=== PATIENT | female | born 1965 | race Caucasian/White ===

== ENCOUNTER 2020-03-31 01:48 | Observation (INO) | payer OTHER ==
[2020-03-31] MEDS ORDERED: ONDANSETRON 4 MG/2 ML VIAL ONE ×2 (02:48→09:01)
[2020-03-31] MEDS ORDERED: MORPHINE 2 MG/ML SYR ONE ×2 (02:48→04:01)
[2020-03-31] MEDS ORDERED: FAMOTIDINE 20 MG/2 ML VIAL IV ONE (02:48)
[2020-03-31] MEDS ORDERED: NA CHLORIDE 0.9% 1,000 ML ONE (02:48)
[2020-03-31 02:53] LABS: Absolute Lymphocytes (CBC) 1.7 K/uL (0.7-4.9); Basophils % 0.6 % (0-1.3); Hematocrit 42.2 % (36.0-45.0); Lymphocytes % 22.6 % (15.3-44.8); MPV 7.9 fL (7.6-11.3); RBC Red Blood Cell Count 4.44 M/uL (3.86-4.86)
[2020-03-31 03:02] LABS: Albumin 3.7 g/dL (3.4-5.0); Bilirubin Direct 0.1 mg/dL (0-0.2); Bilirubin Total 0.4 mg/dL (0.2-1.0); Potassium 3.6 mmol/L (3.5-5.1); Protein, Total 7.5 g/dL (6.4-8.2)
--- NOTE | 2020-03-31 03:56 | ER ---
Nurse's Notes [facility] Name: Marla Perdomo Age: 54 yrs Sex: Female : 1965 Arrival Date: 03/31/2020 Time: 01:51 Bed 2 Private MD: Diagnosis: Abdominal tenderness;Acute appendicitis Presentation: 03/31 02:02 Chief complaint: Patient states: Epigastric pain that began 2-3 days, non radiating, sg described as burning at times, reports nausea, denies fever/chills/diarrhea/vomiting at this time for triage. Coronavirus screen: Patient denies a cough. Patient denies shortness of breath or difficulty breathing. Patient denies measured and/or subjective temperature greater than 100.4F prior to today's visit. Patient denies travel on a cruise ship or to a country the [facility] currently lists as an affected area. Patient denies contact with known and/or suspected case of COVID-19. Proceed with normal triage. Ebola Screen: Patient negative for fever greater than or equal to 101.5 degrees Fahrenheit, and additional compatible Ebola Virus Disease symptoms Patient denies exposure to infectious person. Patient denies travel to an Ebola-affected area in the 21 days before illness onset. No symptoms or risks identified at this time. Initial Sepsis Screen: Does the patient meet any 2 criteria? No. Patient's initial sepsis screen is negative. Does the patient have a suspected source of infection? Yes: Acute abdominal pain. Risk Assessment: Do you want to hurt yourself or someone else? Patient reports no desire to harm self or others. Onset of symptoms was March 31, 2020. Care prior to arrival: None. Transition of care: patient was not received from another setting of care. 02:02 Method Of Arrival: Ambulatory sg 02:02 Acuity: KAITLIN 3 sg Historical: - Allergies: 02:06 PENICILLINS; sg - Home Meds: 02:06 levothyroxine oral [Active]; amlodipine oral [Active]; Omeprazole Oral [Active]; sg Hydrochlorothiazide Oral [Active]; - PMHx: 02:06 Hypothyroidism; Hypertension; sg - PSHx: 02:06 Breast Reduction; sg - Immunization history:: Adult Immunizations up to date. - Social history:: Smoking status: Patient denies any tobacco usage or history of. - Family history:: not pertinent. Screenin:49 Abuse screen: Denies threats or abuse. Denies injuries from another. Nutritional rr5 screening: No deficits noted. Tuberculosis screening: No symptoms or risk factors identified. Fall Risk IV access (20 points). Total Torrez Fall Scale indicates No Risk (0-24 pts). Assessment: 02:45 General: Appears in no apparent distress. uncomfortable, Behavior is calm, cooperative, rr5 appropriate for age. Pain: Complains of pain in epigastric area Pain radiates to right lower quadrant Pain currently is 7 out of 10 on a pain scale. Quality of pain is described as burning, Pain began gradually, 2-3 days ago. Is intermittent. Neuro: Level of Consciousness is awake, alert, obeys commands, Oriented to person, place, time, situation. Cardiovascular: Capillary refill < 3 seconds Patient's skin is warm and dry. Respiratory: Airway is patent Respiratory effort is even, unlabored, Respiratory pattern is regular, symmetrical. GI: Abdomen is round non-distended, Bowel sounds present X 4 quads. Abdomen is tender to palpation. : No signs and/or symptoms were reported regarding the genitourinary system. EENT: No signs and/or symptoms were reported regarding the EENT system. Derm: Skin is intact, is healthy with good turgor, Skin temperature is warm. Musculoskeletal: Circulation, motion, and sensation intact. Capillary refill < 3 seconds. 03:49 Reassessment: Patient appears in no apparent distress at this time. No changes from previously documented assessment. Patient and/or family updated on plan of care and expected duration. Pain level reassessed. Patient is alert, oriented x 3, equal unlabored respirations, skin warm/dry/pink. 05:15 Reassessment: Patient appears in no apparent distress at this time. No changes from previously documented assessment. Patient and/or family updated on plan of care and expected duration. Pain level reassessed. Patient is alert, oriented x 3, equal unlabored respirations, skin warm/dry/pink. Vital Signs: 02:02 Pulse 87 MON; Resp 16 S; Temp 97.7; Pulse Ox 100% on R/A; Weight 76.2 kg (R); Height 5 sg ft. 7 in. (170.18 cm) (R); Pain 7/10; 03:49 BP 123 / 57; Pulse 59; Resp 18; Pulse Ox 98% on R/A; 05:14 BP 111 / 56; Pulse 65; Resp 18; Pulse Ox 99% on R/A; 02:02 Body Mass Index 26.31 (76.20 kg, 170.18 cm) ED Course: 01:51 Patient arrived in ED. cl3 02:00 Moises Simental MD is Attending Physician. [place] 02:04 Triage completed. 02:06 Arm band placed on. sg 02:24 Inserted saline lock: 20 gauge in right antecubital area, using aseptic technique. mw2 Blood collected. 02:30 Keanu Lee is Primary Nurse. 02:49 Patient has correct armband on for positive identification. Placed in gown. Bed in low rr5 position. Call light in reach. Pulse ox on. NIBP on. 03:28 CT Abd/Pelvis - IV Contrast Only In Process Unspecified. EDMS 03:46 Chest Single View XRAY In Process Unspecified. EDMS 03:55 Galen Garcia MD is Hospitalizing Provider. [facility] 05:13 No provider procedures requiring assistance completed. Patient admitted, IV remains in wh place. Administered Medications: 02:42 Drug: NS 0.9% 1000 ml Route: IV; Rate: 1 bolus; Site: right antecubital; 03:56 Follow up: Response: No adverse reaction; IV Status: Completed infusion 02:44 Drug: Pepcid 20 mg Route: IVP; Site: right antecubital; 03:56 Follow up: Response: No adverse reaction 02:46 Drug: morphine 2 mg {Note: RASS 0.} Route: IVP; Site: right antecubital; 02:48 Drug: Zofran (Ondansetron) 4 mg Route: IVP; Site: right antecubital; 03:56 Follow up: Response: No adverse reaction; Nausea is decreased 03:56 Drug: morphine 2 mg {Note: RASS 0.} Route: IVP; Site: right antecubital; 03:56 Follow up: Response: No adverse reaction; Pain is decreased; RASS: Alert and Calm (0) 04:15 Drug: Mefoxin 2 grams Route: IVPB; Infused Over: 30 mins; Site: right antecubital; 04:57 Follow up: Response: No adverse reaction; IV Status: Completed infusion 04:57 Drug: Flagyl 500 mg Volume: 100 ml; Route: IVPB; Rate: 200 ml/hr; Infused Over: 30 wh mins; Site: right antecubital; 05:15 Follow up: Response: No adverse reaction; IV Status: Infusion continued upon admission Outcome: 03:55 Decision to Hospitalize by Provider. [facility] 05:14 Admitted to Med/surg accompanied by tech, via wheelchair, room 214, with chart, Report called to Alea De La Fuente RN 05:14 Condition: stable 05:14 Instructed on the need for admit. 05:35 Patient left the ED. Signatures: Dispatcher [employer] EDEzekiel Tellez RN RN Moises Downing MD MD cha Habalo, Winsy Abdirahman Mike mw2 George Tinoco RN RN rr5 Aiden Osorio cl3
--- NOTE | 2020-03-31 03:56 | EDPHYS ---
Physician Documentation [facility] Name: Marla Perdomo Age: 54 yrs Sex: Female : 1965 Arrival Date: 03/31/2020 Time: 01:51 Bed 2 Private MD: Moises Quevedo HPI: 03/31 02:35 This 54 yrs old Female presents to ER via Ambulatory with complaints of chico Abdominal Pain. 02:35 The patient presents with abdominal pain in the upper abdomen, in the lower abdomen. chico Onset: The symptoms/episode began/occurred 2 day(s) ago. The patient presents to the emergency department with nausea, vomiting, abdominal pain, of the right upper quadrant, left upper quadrant, right lower quadrant and left lower quadrant. Onset: The symptoms/episode began/occurred 2 day(s) ago. Possible causes: unknown. The symptoms are aggravated by nothing. The symptoms are alleviated by nothing. Associated signs and symptoms: The patient has no apparent associated signs or symptoms. The symptoms do not radiate. Associated signs and symptoms: none. Modifying factors: The symptoms are alleviated by remaining still, the symptoms are aggravated by movement. Historical: - Allergies: 02:06 PENICILLINS; sg - Home Meds: 02:06 levothyroxine oral [Active]; amlodipine oral [Active]; Omeprazole Oral [Active]; sg Hydrochlorothiazide Oral [Active]; - PMHx: 02:06 Hypothyroidism; Hypertension; sg - PSHx: 02:06 Breast Reduction; sg - Immunization history:: Adult Immunizations up to date. - Social history:: Smoking status: Patient denies any tobacco usage or history of. - Family history:: not pertinent. ROS: 02:35 Constitutional: Negative for fever, chills, and weight loss, Eyes: Negative for injury, chico pain, redness, and discharge, ENT: Negative for injury, pain, and discharge, Neck: Negative for injury, pain, and swelling, Cardiovascular: Negative for chest pain, palpitations, and edema, Respiratory: Negative for shortness of breath, cough, wheezing, and pleuritic chest pain, Back: Negative for injury and pain, : Negative for injury, bleeding, discharge, and swelling, MS/Extremity: Negative for injury and deformity, Skin: Negative for injury, rash, and discoloration, Neuro: Negative for headache, weakness, numbness, tingling, and seizure, Psych: Negative for depression, anxiety, suicide ideation, homicidal ideation, and hallucinations, Allergy/Immunology: Negative for hives, rash, and allergies, Endocrine: Negative for neck swelling, polydipsia, polyuria, polyphagia, and marked weight changes, Hematologic/Lymphatic: Negative for swollen nodes, abnormal bleeding, and unusual bruising. 02:35 Abdomen/GI: Positive for abdominal pain, of the right upper quadrant, left upper quadrant, right lower quadrant and left lower quadrant. Exam: 02:36 Constitutional: This is a well developed, well nourished patient who is awake, alert, chico and in no acute distress. Head/Face: Normocephalic, atraumatic. Eyes: Pupils equal round and reactive to light, extra-ocular motions intact. Lids and lashes normal. Conjunctiva and sclera are non-icteric and not injected. Cornea within normal limits. Periorbital areas with no swelling, redness, or edema. ENT: Nares patent. No nasal discharge, no septal abnormalities noted. Tympanic membranes are normal and external auditory canals are clear. Oropharynx with no redness, swelling, or masses, exudates, or evidence of obstruction, uvula midline. Mucous membranes moist. Neck: Trachea midline, no thyromegaly or masses palpated, and no cervical lymphadenopathy. Supple, full range of motion without nuchal rigidity, or vertebral point tenderness. No Meningismus. Chest/axilla: Normal chest wall appearance and motion. Nontender with no deformity. No lesions are appreciated. Cardiovascular: Regular rate and rhythm with a normal S1 and S2. No gallops, murmurs, or rubs. Normal PMI, no JVD. No pulse deficits. Respiratory: Lungs have equal breath sounds bilaterally, clear to auscultation and percussion. No rales, rhonchi or wheezes noted. No increased work of breathing, no retractions or nasal flaring. Back: No spinal tenderness. No costovertebral tenderness. Full range of motion. Female : Normal external genitalia. Skin: Warm, dry with normal turgor. Normal color with no rashes, no lesions, and no evidence of cellulitis. MS/ Extremity: Pulses equal, no cyanosis. Neurovascular intact. Full, normal range of motion. Neuro: Awake and alert, GCS 15, oriented to person, place, time, and situation. Cranial nerves II-XII grossly intact. Motor strength 5/5 in all extremities. Sensory grossly intact. Cerebellar exam normal. Normal gait. Psych: Awake, alert, with orientation to person, place and time. Behavior, mood, and affect are within normal limits. 02:36 Abdomen/GI: Inspection: abdomen appears normal, Bowel sounds: active, Palpation: moderate abdominal tenderness, in the right upper quadrant, left upper quadrant, right lower quadrant and left lower quadrant, Liver: no appreciated palpable abnormalities, Hernia: not appreciated. Vital Signs: 02:02 Pulse 87 MON; Resp 16 S; Temp 97.7; Pulse Ox 100% on R/A; Weight 76.2 kg (R); Height 5 sg ft. 7 in. (170.18 cm) (R); Pain 7/10; 03:49 BP 123 / 57; Pulse 59; Resp 18; Pulse Ox 98% on R/A; 05:14 BP 111 / 56; Pulse 65; Resp 18; Pulse Ox 99% on R/A; 02:02 Body Mass Index 26.31 (76.20 kg, 170.18 cm) MDM: 02:00 Patient medically screened. [facility] 02:37 Data reviewed: vital signs, nurses notes, lab test result(s), radiologic studies, CT [facility] scan, plain films. 03/31 02:18 Order name: Basic Metabolic Panel; Complete Time: 03:52 mw2 03/31 02:18 Order name: CBC with Diff; Complete Time: 02:57 [facility] 03/31 02:18 Order name: Hepatic Function; Complete Time: 03:52 mw2 03/31 02:18 Order name: Lipase; Complete Time: 03:52 mw2 03/31 02:34 Order name: Chest Single View XRAY [facility] 03/31 02:37 Order name: CT Abd/Pelvis - IV Contrast Only [facility] 03/31 02:18 Order name: IV Saline Lock; Complete Time: 02:31 mw 03/31 02:18 Order name: Labs collected and sent; Complete Time: 02:31 mw2 Administered Medications: 02:42 Drug: NS 0.9% 1000 ml Route: IV; Rate: 1 bolus; Site: right antecubital; 03:56 Follow up: Response: No adverse reaction; IV Status: Completed infusion 02:44 Drug: Pepcid 20 mg Route: IVP; Site: right antecubital; 03:56 Follow up: Response: No adverse reaction 02:46 Drug: morphine 2 mg {Note: RASS 0.} Route: IVP; Site: right antecubital; 02:48 Drug: Zofran (Ondansetron) 4 mg Route: IVP; Site: right antecubital; 03:56 Follow up: Response: No adverse reaction; Nausea is decreased 03:56 Drug: morphine 2 mg {Note: RASS 0.} Route: IVP; Site: right antecubital; 03:56 Follow up: Response: No adverse reaction; Pain is decreased; RASS: Alert and Calm (0) 04:15 Drug: Mefoxin 2 grams Route: IVPB; Infused Over: 30 mins; Site: right antecubital; 04:57 Follow up: Response: No adverse reaction; IV Status: Completed infusion 04:57 Drug: Flagyl 500 mg Volume: 100 ml; Route: IVPB; Rate: 200 ml/hr; Infused Over: 30 wh mins; Site: right antecubital; 05:15 Follow up: Response: No adverse reaction; IV Status: Infusion continued upon admission Disposition: 03/31/20 03:55 Hospitalization ordered by Galen Garcia for Observation. Preliminary diagnosis are Abdominal tenderness, Acute appendicitis. - Bed requested for Telemetry/MedSurg (observation). - Status is Observation. - Condition is Fair. - Problem is new. - Symptoms have improved. Signatures: Dispatcher [employer] EDMS Caroline Mello RN RN mw Gay, Steven, RN RN sg Anderson, Corey, MD MD cha Habalo, [facility]y [facility] mw2 Corrections: (The following items were deleted from the chart) 04:15 03:55 Hospitalization Ordered by Galen Garcia MD for Observation. Preliminary diagnosis mw is Abdominal tenderness; Acute appendicitis. Bed requested for Telemetry/MedSurg (observation). Status is Observation. Condition is Fair. Problem is new. Symptoms have improved. [facility] 05:35 04:15 03/31/2020 03:55 Hospitalization Ordered by Galen Garcia MD for Observation. Preliminary diagnosis is Abdominal tenderness; Acute appendicitis. Bed requested for Telemetry/MedSurg (observation). Status is Observation. Condition is Fair. Problem is new. Symptoms have improved. mw
[2020-03-31] MEDS ORDERED: CEFOXITIN SODIUM 1 GM/VIAL ONE (04:13)
[2020-03-31] MEDS ORDERED: METRONIDAZOLE 500mg IVPB 500 MG/100 ML BAG IV ONE (04:13)
[2020-03-31] MEDS ORDERED: NA CHLORIDE 0.9% 100 ML IV ONE (04:13)
[2020-03-31] MEDS ORDERED: D5 0.45 NS 1,000 ML IV SCH (05:31)
[2020-03-31] MEDS ORDERED: MORPHINE 4 MG/ML SYR IV PRN (05:31)
[2020-03-31] MEDS ORDERED: ONDANSETRON 4 MG (ODT) TAB PO PRN (05:31)
[2020-03-31] MEDS ORDERED: ACETAMINOPHEN 325 MG TABLET PO PRN (05:33)
[2020-03-31 05:40] VITALS: BMI 26.9
[2020-03-31] MEDS ORDERED: CEFOXITIN SODIUM 1 GM/VIAL IVPB SCH (06:00)
[2020-03-31] MEDS: METRONIDAZOLE 500mg IVPB 500 MG/100 ML BAG IV SCH ×2 (06:00→12:00)
[2020-03-31] MEDS ORDERED: CEFOXITIN/SWI 1gm 1 GM/10 ML SYR ONE ×2 (06:24→08:59)
[2020-03-31] MEDS ORDERED: LIDOCAINE 1% MPF 5 ML VIAL ONE (08:15)
[2020-03-31] MEDS ORDERED: FENTANYL CITR 100 MCG/2 ML ONE (08:15)
[2020-03-31] MEDS ORDERED: propofoL 200 MG/20 ML VIAL IV ONE (08:15)
[2020-03-31] MEDS ORDERED: MIDAZOLAM HCL 2 MG/2 ML INJ ONE (08:15)
[2020-03-31] MEDS ORDERED: ROCURONIUM 50 MG/5 ML VIAL IV ONE (08:15)
[2020-03-31] MEDS ORDERED: Ringers Lactate 1,000 ML IV ONE (08:30)
[2020-03-31] MEDS ORDERED: SUCCINYLCHOLINE 20 MG/ML (10 ML) IV ONE (08:41)
--- NOTE | 2020-03-31 08:52 | RAD REPORT ---
EXAM DESCRIPTION: RAD - Chest Single View - 03/31/2020 3:46 am CLINICAL HISTORY: ABDOMINAL DISTENTION Chest pain. COMPARISON: No comparisons FINDINGS: Portable technique limits examination quality. The lungs are grossly clear. The heart is normal in size. No displaced fractures. IMPRESSION: No acute intrathoracic process suspected.
[2020-03-31] MEDS ORDERED: dexAMETHasone 10 MG/ML VIAL ONE (09:01)
[2020-03-31] MEDS ORDERED: KETOROLAC 30 MG/ML INJ ONE (09:01)
--- NOTE | 2020-03-31 09:04 | PREOPHP ---
Date of Admission: 03/31/2020 Chief Complaint: Abdominal pain. History Of Present Illness: The patient is a 54-year-old female, who was admitted with approximately 3-day history of diffuse abdominal pain, localizing to the right lower quadrant, associated with ano rexia and nausea, but no vomiting. No diarrhea or constipation. No blood in her stool. No dysuria or hematuria. No sore throat, runny nose, cough, headaches, or dizziness. No chest pain. No fever or chills. Review of Systems: Otherwise unremarkable. Past Medical History: Negative. Past Surgical History: Breast reduction and tummy tuck. Allergies: PENICILLIN. Social History: The patient denies smoking. Drinks occasionally. Family History: Significant for stroke, heart disease. Physical Examination: Vital Signs: Stable. She is currently afebrile. General: She is awake, alert, oriented x3. Head and Neck: Cranial nerves 2 through 12 grossly within normal limits. No neck masses. No JVD. Throat clear. Neck supple. Chest: Clear. Heart: S1, S2. Abdomen: Soft, nondistended. Positive bowel sounds. Positive right lower quadrant tenderness with rebound. No rigidity or guarding. Extremities: Adequately perfused. Nontender. Neuro: Nonfocal. Laboratory Data: White count is normal. CT of the abdomen and pelvis is consistent with acute appen dicitis. Assessment: Acute appendicitis. Plan: Admit, n.p.o., IV fluid, IV antibiotic. To the OR for lap appy, possible open. The patient u nderstands the risks, benefits, and alternatives and agrees to procedure. /MODL Voice ID: [id number]
[2020-03-31] MEDS ORDERED: GLYCOPYRROLATE 0.2 MG/ML SYR ONE (09:06)
[2020-03-31] MEDS ORDERED: NEOSTIGMINE 1 MG/ML -5 ML ONE (09:06)
--- NOTE | 2020-03-31 09:07 | RAD REPORT ---
EXAM DESCRIPTION: Abdomen Pelvis W Contrast ADDENDUM #1 Urgent finding reported to Dr. Simental at 03/31/2020 3:49 AM CDT Electronically signed by: Dilan Snider 03/31/2020 3:58 AM CDT End of Addendum EXAM DESCRIPTION: CT ABDOMEN AND PELVIS WITH CONTRAST CLINICAL HISTORY: Abd pain;Abdominal distention COMPARISON: None Available. TECHNIQUE: CT of the abdomen and pelvis performed following IV administration of iodinated contras t. FINDINGS: Lung Bases: The visualized lung bases are clear. Bones: No destructive bone lesions identified. Abdomen: Liver: The liver has normal size and decreased density. No intrahepatic biliary dilatation. Gallbladder: No calcified gallstones. Spleen, Pancreas, and Adrenal Glands: The spleen, pancreas, and adrenal glands are unremarkable. Kidneys: No hydronephrosis or obstructing calculus. Left renal cyst. Vasculature: Aortoiliac atherosclerosis. IVC is unremarkable. The portal vein is patent. The proxim al visceral and renal arteries are patent. Stomach: The stomach and duodenum have normal course. Other: No free intraperitoneal air. No free fluid or lymphadenopathy. Pelvis: Bladder: Urinary bladder is unremarkable. Bowel: No dilated loops of large or small bowel. Scattered diverticula colon. No pericolic inflamma tory change. Appendix: Dilation of the appendix measuring 1.3 cm. Wall thickening of the appendix. No periappend iceal inflammatory change. Pelvis: Likely intramural uterine fibroid. IMPRESSION: 1. Findings compatible with acute appendicitis. 2. Diverticulosis without evidence of acute diverticulitis. 3. Fibroid uterus. 4. Hepatic steatosis. This exam was performed according to our departmental dose-optimization program, which includes autom ated exposure control, adjustment of the mA and/or kV according to patient size and/or use of iterati ve reconstruction technique. Electronically signed by: Dilan Snider 03/31/2020 3:46 AM CDT Due to temporary technical issues with the PACS/Fluency reporting system, reports are being signed by the in house radiologist without review as a courtesy to ensure prompt reporting. The interpreting r adiologist is fully responsible for the content of the report.
--- NOTE | 2020-03-31 09:34 | P.OP ---
Remelt Furnace Expediter: Tommie RODRIGUES Preoperative diagnosis: Acute Appendicitis Postoperative diagnosis: same Primary procedure: Lap Appy Anesthesia: gen Estimated blood loss: min Specimen: Appy Findings: as above Complications: None Transferred to: Recovery Room Condition: Good
[2020-03-31] MEDS ORDERED: ONDANSETRON 4 MG/2 ML VIAL IV PRN (09:38)
[2020-03-31] MEDS ORDERED: HYDROCODONE/APAP 7.5/325 MG TAB PO PRN (09:38)
[2020-03-31] MEDS ORDERED: HYDROMORPHONE HCL 1 MG/ML INJ IV PRN (09:38)
--- NOTE | 2020-03-31 10:04 | OP ---
Date of Procedure: 03/31/2020 Surgeon: Galen Garcia MD Hedis Nurse: LILIA Cat. Preoperative Diagnosis: Acute appendicitis. Postoperative Diagnosis: Acute appendicitis. Procedure: Laparoscopic appendectomy. Estimated Blood Loss: Minimal. Specimen: Appendix. Findings: As above. Anesthesia: General. Complications: None. Disposition: The patient tolerated procedure in stable condition, taken to Recovery in good general condition. Description Of Procedure: The patient was brought to the OR and placed in supine position. General anesthesia was begun. The patient was prepped and draped in usual sterile fashion. Marcaine 0.5% wa s infiltrated locally. A 15 blade was used to make a 1 cm infraumbilical midline incision. Subcutan eous tissue was divided. Fascia was identified and divided. A #1 Vicryl stay suture was placed. Pe ritoneal cavity was entered with blunt dissection. A 12 mm trocar was placed into the peritoneal cav ity under direct vision. Pneumoperitoneum was established, and then, two 5 mm trocars were placed, o ne in the suprapubic region and one in the left lower quadrant. Laparoscopy revealed acute suppurati ve appendicitis in the right lower quadrant. Base of the appendix and mesoappendix clearly identifie d. Endo-PAWEL stapling device was used to divide both structures. Appendix was retrieved through the umbilicus via an EndoCatch bag. The right lower quadrant irrigated, effluent clear. No evidence of bleeding or bowel injury appreciated. No other evidence of disease identified. Subsequently, all tr ocars were removed under direct vision. Stay sutures were tied to each other to reapproximate the fa scial defect. Subcutaneous wounds irrigated and bleeding controlled with cautery. A 3-0 chromic use d to reapproximate subcutaneous tissue and close the skin. Sterile dressing was applied. The patien t was awakened and taken to Recovery in good general condition. Discharge Note: The patient will go to the floor, and if tolerated her lunch, she will be discharged this afternoon. Disposition: Home. Condition: Stable. Discharge Instructions: Resume home medications and diet. Activity as tolerated. No heavy lifting. Remove outer dressing in 2 days. Shower. Keep wound clean and dry. Follow up in my office in a sushant lunak. Call for appointment. Tylenol No. 3 one tablet p.o. q.4 p.r.n. pain, Cipro 500 mg p.o. q.12, F lagyl 500 mg p.o. q.8. Keep Steri-Strips on at all times. Incentive spirometry is ordered. /MODL Voice ID: [id number] Report ID: [id number]
[2020-03-31 10:10] VITALS: O2SAT 95
[2020-03-31] MEDS ORDERED: CEFOXITIN/SWI 1gm 1 GM/10 ML SYR IV SCH (12:00)
[2020-03-31 12:59] VITALS: BP 106/51; TEMP 97.2
== END 2020-03-31 14:56 | disposition home or self-care (01) ==
LOC: ER 01:48 → ERHOLD 04:01 → 2ND 05:15
PROVIDERS: ADMIT Surgery; ATTEND Surgery
PROC: 0DTJ4ZZ Resection of Appendix, Percutaneous Endoscopic Approach (ICD-10-PCS; principal; 2020-03-31 12:15)
DX: K35.80 Unspecified acute appendicitis (principal); Z11.59 Encounter for screening for other viral diseases; K57.30 Diverticulosis of large intestine without perforation or abscess without bleeding; K76.0 Fatty (change of) liver, not elsewhere classified; D25.9 Leiomyoma of uterus, unspecified
CPT/HCPCS: 44970; 96365; 96367; 96361; 85025; 80048; 36415; 80076; 88304; 83690; 74177; 71045; 96375; 99285; U0002; Q9967; J2704; J0330; J2250; J3010; J1100; J2270 ×2; J2710; G0378 ×3; J7799; J7120; J7030; J0694; J2405 ×2